=== PATIENT | female | born 1995 | race Hispanic/Latino ===

== ENCOUNTER → 2023-02-27 | Emergency (ER) | payer BC, OTHER ==
[~2023-02-27] MED LIST: CEFTRIAXONE 2000 MG/VIAL ONE; DIPHENHYDRAMINE 50 MG/ML VIAL ONE; MORPHINE 4 MG/ML SYR ONE; NA CHLORIDE 0.9% 1,000 ML ONE; NA CHLORIDE 0.9% 100 ML ONE; ONDANSETRON 4 MG/2 ML VIAL ONE
[2023-02-27 02:16] LABS: Specific Gravity 1.036 (1.005-1.030)
[2023-02-27 02:22] LABS: Absolute Lymphocytes (CBC) 0.6 K/uL (0.7-4.9); Hematocrit 39.6 % (36.0-45.0); Lymphocytes % 4.3 % (15.3-44.8); MCV 82.5 fL (80-100); Platelets 221 thou/uL (152-406)
[2023-02-27 02:30] LABS: Albumin 2.9 g/dL (3.4-5.0); Bilirubin Total 0.3 mg/dL (0.2-1.0); Potassium 3.2 mEq/L (3.5-5.1); Protein, Total 7.5 g/dL (6.4-8.2)
[2023-02-27 02:40] LABS: Specific Gravity > 1.030 (1.005-1.030); Urine Bacteria >50 /HPF (<20); Urine Bilirubin NEGATIVE (Negative); Urine Blood 3+ (Negative); Urine Clarity Extremely Turbid (Clear); Urine Color Yellow (Yellow); Urine Glucose TRACE (Negative); Urine Mucus 4+ /HPF (None Seen); Urine Protein 3+ (Negative); Urine RBC 21-50 /HPF (None Seen); Urine Urobilinogen Normal (Normal)
[2023-02-27 03:43] LABS: Blood Morphology Comment NOT SEEN (NOT SEEN); Platelet Estimate ADEQ
--- NOTE | 2023-02-27 05:07 | EDPHYS ---
Physician Documentation [facility] Name: Ivon Bahena Age: 27 yrs Sex: Female : 1995 Arrival Date: 02/27/2023 Time: 01:07 Bed 20 Private MD: ED Physician Camille Marcos HPI: 02/27 01:18 This 27 yrs old Female presents to ER via Unassigned with complaints of gb1 Abdominal Pain. 05:11 This 27 yrs old Female presents to ER via Ambulatory with complaints of gb1 Abdominal Pain. 05:11 27-year-old female with abdominal pain and right-sided back pain. She states that she gb1 has not had any fevers but she has had chills. She recently traveled abroad and returned on Friday. She has been feeling poor since then. She is nauseated no vomiting. No diarrhea.. 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 - Social history:: Smoking status: Patient denies any tobacco usage or history of. Patient uses alcohol, occasionally. Patient/guardian denies using street drugs. ROS: 05:11 Eyes: Negative for injury, pain, redness, and discharge, ENT: Negative for injury, gb1 pain, and discharge, Neck: Negative for injury, pain, and swelling, Cardiovascular: Negative for chest pain, palpitations, and edema, Respiratory: Negative for shortness of breath, cough, wheezing, and pleuritic chest pain, 05:11 Abdomen/GI: Positive for nausea, abdominal cramps, 05:11 All other systems are negative, Exam: 05:11 Constitutional: This is a well developed, well nourished patient who is awake, alert, gb1 and in no acute distress. Head/Face: Normocephalic, atraumatic. Eyes: Pupils equal round and reactive to light, extra-ocular motions intact. Lids and lashes normal. Conjunctiva and sclera are non-icteric and not injected. Cornea within normal limits. Periorbital areas with no swelling, redness, or edema. ENT: Nares patent. No nasal discharge, no septal abnormalities noted. Tympanic membranes are normal and external auditory canals are clear. Oropharynx with no redness, swelling, or masses, exudates, or evidence of obstruction, uvula midline. Mucous membranes moist. Neck: Trachea midline, no thyromegaly or masses palpated, and no cervical lymphadenopathy. Supple, full range of motion without nuchal rigidity, or vertebral point tenderness. No Meningismus. Chest/axilla: Normal chest wall appearance and motion. Nontender with no deformity. No lesions are appreciated. Cardiovascular: Regular rate and rhythm with a normal S1 and S2. No gallops, murmurs, or rubs. Normal PMI, no JVD. No pulse deficits. Respiratory: Lungs have equal breath sounds bilaterally, clear to auscultation and percussion. No rales, rhonchi or wheezes noted. No increased work of breathing, no retractions or nasal flaring. Back: No spinal tenderness. No costovertebral tenderness. Full range of motion. Skin: Warm, dry with normal turgor. Normal color with no rashes, no lesions, and no evidence of cellulitis. MS/ Extremity: Pulses equal, no cyanosis. Neurovascular intact. Full, normal range of motion. Neuro: Awake and alert, GCS 15, oriented to person, place, time, and situation. Cranial nerves II-XII grossly intact. Motor strength 5/5 in all extremities. Sensory grossly intact. Cerebellar exam normal. Normal gait. Psych: Awake, alert, with orientation to person, place and time. Behavior, mood, and affect are within normal limits. 05:11 Abdomen/GI: Inspection: abdomen appears normal, Bowel sounds: normal, Palpation: moderate abdominal tenderness, in the right lower quadrant, Indicators: McBurney's point is tender, Vital Signs: 01:28 BP 128 / 72; Pulse 101; Resp 19; Temp 98.9; Pulse Ox 100% ; Weight 57.61 kg; Height 5 jj7 ft. 1 in. ; Pain 8/10; 02:58 BP 110 / 73; Pulse 101; Pulse Ox 98% on R/A; ap3 04:13 Pain 9/10; ap3 04:13 BP 112 / 73; Pulse 98; Pulse Ox 98% on R/A; ap3 05:00 Pulse 88; Pulse Ox 98% on R/A; ap3 05:16 Pulse 87; Pulse Ox 97% on R/A; ap3 01:28 Body Mass Index 24.00 (57.61 kg, 154.94 cm) jj7 01:28 Pain Scale: Adult jj7 04:13 Pain Scale: Adult ap3 MDM: 01:36 Patient medically screened. gb1 05:11 Differential diagnosis: acute coronary syndrome, appendicitis, bowel obstruction, gb1 cholecystitis, Cholelithiasis, gastroesophageal reflux disease, GI Bleed. 05:11 Data reviewed: vital signs, nurses notes. ED course: 22-year-old 27-year-old female gb1 here with a right acute pyelonephritis. There is no sign of infected ureterolithiasis or obstruction. She is afebrile and at this time does not appear septic. I have started IV antibiotics and will discharge her home with Bactrim. I given explicit return precautions and if she cannot tolerate medications or develops fever and cannot keep fluids down that she is to return to the emergency department immediately. Patient's mother is at her bedside.. 02/27 02:17 Order name: Test, Urine; Complete Time: 02:43 EDMS 02/27 02:30 Order name: Comprehensive Metabolic Panel; Complete Time: 02:43 EDMS 02/27 02:30 Order name: Lipase; Complete Time: 02:43 EDMS 02/27 02:43 Order name: CBC with Automated Diff; Complete Time: 02:43 EDMS 02/27 02:43 Order name: Urinalysis w/ reflexes; Complete Time: 02:44 EDMS 02/27 03:37 Order name: CBC with Automated Diff; Complete Time: 04:55 EDMS 02/27 03:37 Order name: Comprehensive Metabolic Panel EDND 02/27 03:37 Order name: Lipase EDND 02/27 03:37 Order name: Test, Urine EDND 02/27 03:37 Order name: Urinalysis w/ reflexes EDND 02/27 03:37 Order name: Urine Culture EDND 02/27 03:37 Order name: Manual Differential; Complete Time: 04:55 EDMS 02/27 03:47 Order name: CT Abd/Pelvis - IV Contrast Only gb1 02/27 01:17 Order name: IV Saline Lock; Complete Time: 01:53 gb1 02/27 01:17 Order name: Labs collected and sent; Complete Time: gb1 Administered Medications: 02:59 Drug: NS 0.9% IV 1000 ml IV at 1000 ml once Route: IV; Rate: 1000 ml; Site: right ap3 antecubital; 05:38 Follow up: IV Status: Completed infusion; IV Intake: 1000ml ap3 02:59 Drug: Ondansetron IVP 4 mg IVP once; over 2 minutes Route: IVP; Site: right antecubital;ap3 05:01 Follow up: Response: No adverse reaction ap3 03:50 CANCELLED (Duplicate Order): ondansetron 4 mg IVP once; over 2 minutes gb1 04:03 Drug: morphine IVP or IV 4 mg IVP once over 4 mins Route: IVP; Infused Over: 4 mins; ap3 Site: right antecubital; 05:00 Follow up: Response: No adverse reaction; Pain is decreased ap3 05:15 Drug: diphenhydrAMINE IVP 12.5 mg IVP once Route: IVP; Site: right antecubital; ap3 05:37 Follow up: Response: No adverse reaction ap3 05:15 Drug: Rocephin - Rocephin (cefTRIAXone) IVPB 2 grams IVPB once over 30 mins; (mix in ap3 100 mL NS) Route: IVPB; Infused Over: 30 mins; Site: right antecubital; 05:47 Follow up: IV Status: Completed infusion; IV Intake: 100ml ap3 Disposition Summary: 02/27/23 05:06 Discharge Ordered Notes: Location: Home gb1 Problem: new gb1 Symptoms: have improved gb1 Condition: Stable gb1 Diagnosis - Pyelonephritis acute gb1 Followup: gb1 - With: Private Physician - When: 48 Hours - Reason: Re-evaluation by your physician Discharge Instructions: - Discharge Summary Sheet ap3 - Pyelonephritis, Adult, [id number] gb1 Forms: - Work release form ap3 - Medication Reconciliation Form gb1 - Thank You Letter gb1 - Antibiotic Education gb1 - Prescription Opioid Use gb1 - Patient Portal Instructions gb1 - Leadership Thank You Letter gb1 Prescriptions: - ketorolac 10 mg Oral tablet - take 1 tablet ORAL route every 6 hours for 5 days as needed for pain; 30 gb1 tablet; Refills: 0, Product Selection Permitted - Zofran 4 mg Oral Tablet - take 1 tablet ORAL route every 12 hours As needed; 20 tablet; Refills: 0, gb1 Product Selection Permitted - Bactrim DS 800-160 mg Oral Tablet - take 1 tablet ORAL route every 12 hours for 7 days; 14 tablet; Refills: 0, gb1 Product Selection Permitted Signatures: Dispatcher [employer] EDRandee Pate RN RN ap3 Srikanth Venegas RN RN jj7 Camille Marcos MD MD gb1 Corrections: (The following items were deleted from the chart) 03:38 03:31 CBC+H.LAB.BRZ ordered. EDMS EDMS 03:38 03:31 COMPREHENSIVE METABOLIC PANEL+C.LAB.BRZ ordered. EDMS EDMS 03:38 03:31 LIPASE+C.LAB.BRZ ordered. EDMS EDMS 03:38 03:31 Test, Urine+UC.LAB.BRZ ordered. EDMS EDMS 03:38 03:31 Urinalysis+U.LAB.BRZ ordered. EDMS EDMS 03:50 03:47 Ondansetron IVP 4 mg IVP once; over 2 minutes ordered. gb1 gb1 03:50 03:48 CBC+H.LAB.BRZ ordered. EDMS EDMS 03:50 03:48 COMPREHENSIVE METABOLIC PANEL+C.LAB.BRZ ordered. EDMS EDMS 03:50 03:48 LIPASE+C.LAB.BRZ ordered. EDMS EDMS
--- NOTE | 2023-02-27 05:07 | ER ---
Nurse's Notes [facility] Name: Ivon Bahena Age: 27 yrs Sex: Female : 1995 Arrival Date: 02/27/2023 Time: 01:07 Bed 20 Private MD: Diagnosis: Pyelonephritis acute Presentation: 02/27 01:28 Chief complaint: Patient states: RLL PAIN AND N/V/D/ SINCE FRIDAY. Coronavirus screen: jj7 At this time, the client does not indicate any symptoms associated with coronavirus-19. Ebola Screen: No symptoms or risks identified at this time. Initial Sepsis Screen: Does the patient meet any 2 criteria? HR > 90 bpm. No. Patient's initial sepsis screen is negative. Does the patient have a suspected source of infection? No. Patient's initial sepsis screen is negative. Risk Assessment: Do you want to hurt yourself or someone else? Patient reports no desire to harm self or others. 01:28 Method Of Arrival: Ambulatory [facility] 01:28 Acuity: MARYANNE 3 j7 01:53 Onset of symptoms is unknown. ap3 Triage Assessment: 01:32 General: Appears in no apparent distress. comfortable, Behavior is calm, cooperative, jj7 appropriate for age. Pain: Complains of pain in right lower quadrant GI: Reports lower abdominal pain, diarrhea, nausea, vomiting. 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 - Social history:: Smoking status: Patient denies any tobacco usage or history of. Patient uses alcohol, occasionally. Patient/guardian denies using street drugs. Screenin:53 [facility] ED Fall Risk Assessment (Adult) History of falling in the last 3 months, ap3 including since admission No falls in past 3 months (0 pts). Abuse screen: Denies threats or abuse. Nutritional screening: No deficits noted. Tuberculosis screening: No symptoms or risk factors identified. Assessment: 01:53 General: Appears in no apparent distress. Behavior is calm, cooperative, appropriate ap3 for age. Pain: Complains of pain in right lower quadrant Pain began gradually. Neuro: Level of Consciousness is awake, alert, obeys commands, Oriented to person, place, time, situation. Cardiovascular: Patient's skin is warm and dry. Respiratory: Airway is patent Respiratory effort is even, unlabored, Respiratory pattern is regular, symmetrical. 05:01 GI: Bowel sounds present X 4 quads. Abd is soft Abdomen is tender to palpation in right ap3 lower quadrant. 05:16 Reassessment: Patient and/or family updated on plan of care and expected duration. Pain ap3 level reassessed. Patient is alert, oriented x 3, equal unlabored respirations, skin warm/dry/pink. awaiting completion of antibiotics prior to patients departure. Vital Signs: 01:28 BP 128 / 72; Pulse 101; Resp 19; Temp 98.9; Pulse Ox 100% ; Weight 57.61 kg; Height 5 jj7 ft. 1 in. ; Pain 8/10; 02:58 BP 110 / 73; Pulse 101; Pulse Ox 98% on R/A; ap3 04:13 Pain 9/10; ap3 04:13 BP 112 / 73; Pulse 98; Pulse Ox 98% on R/A; ap3 05:00 Pulse 88; Pulse Ox 98% on R/A; ap3 05:16 Pulse 87; Pulse Ox 97% on R/A; ap3 01:28 Body Mass Index 24.00 (57.61 kg, 154.94 cm) jj7 01:28 Pain Scale: Adult jj7 04:13 Pain Scale: Adult ap3 ED Course: 01:15 Patient arrived in ED. gm2 01:17 Camille Marcos MD is Attending Physician. gb1 01:31 Triage completed. jj7 01:32 Arm band placed on right wrist. jj7 01:41 Randee Byrnes, AMANDA is Primary Nurse. ap3 01:52 Initial lab(s) drawn, by me, sent to lab. Inserted saline lock: 20 gauge in right ap3 antecubital area, using aseptic technique. Blood collected. 01:54 Patient has correct armband on for positive identification. Bed in low position. Call ap3 light in reach. Side rails up X 1. Adult w/ patient. 04:23 CT Abd/Pelvis - IV Contrast Only In Process Unspecified. EDMS 05:01 No provider procedures requiring assistance completed. ap3 05:47 Provided Education on: discharge instructions. ap3 05:47 IV discontinued, intact, bleeding controlled, No redness/swelling at site. Pressure ap3 dressing applied. Administered Medications: 02:59 Drug: NS 0.9% IV 1000 ml IV at 1000 ml once Route: IV; Rate: 1000 ml; Site: right ap3 antecubital; 05:38 Follow up: IV Status: Completed infusion; IV Intake: 1000ml ap3 02:59 Drug: Ondansetron IVP 4 mg IVP once; over 2 minutes Route: IVP; Site: right antecubital;ap3 05:01 Follow up: Response: No adverse reaction ap3 03:50 CANCELLED (Duplicate Order): ondansetron 4 mg IVP once; over 2 minutes gb1 04:03 Drug: morphine IVP or IV 4 mg IVP once over 4 mins Route: IVP; Infused Over: 4 mins; ap3 Site: right antecubital; 05:00 Follow up: Response: No adverse reaction; Pain is decreased ap3 05:15 Drug: diphenhydrAMINE IVP 12.5 mg IVP once Route: IVP; Site: right antecubital; ap3 05:37 Follow up: Response: No adverse reaction ap3 05:15 Drug: Rocephin - Rocephin (cefTRIAXone) IVPB 2 grams IVPB once over 30 mins; (mix in ap3 100 mL NS) Route: IVPB; Infused Over: 30 mins; Site: right antecubital; 05:47 Follow up: IV Status: Completed infusion; IV Intake: 100ml ap3 Medication: 01:54 VIS not applicable for this client. ap3 Intake: 05:38 IV: 1000ml; Total: 1000ml. ap3 05:47 IV: 100ml; Total: 1100ml. ap3 Outcome: 05:06 Discharge ordered by . gb1 05:47 Discharged to home ambulatory, with family, ap3 05:47 Condition: good 05:47 Discharge instructions given to patient, family, Instructed on discharge instructions, follow up and referral plans. medication usage, Demonstrated understanding of instructions, follow-up care, medications, Prescriptions given X 3, 05:48 Patient left the ED. ap3 Signatures: Dispatcher [facility] EDRandee Pate, RN RN ap3 Srikanth Venegas RN RN jj7 Camille Marcos MD MD gb1 Gladis Peterson 2
--- NOTE | 2023-02-27 09:56 | RAD REPORT ---
EXAM DESCRIPTION: CT - Abdomen Pelvis W Contrast - 02/27/2023 6:37 am CLINICAL HISTORY: The patient is 27 years old and is Female; RLQ PAIN TECHNIQUE: Axial computed tomography images of the abdomen and pelvis with intravenous contrast. S agittal and coronal reformatted images were created and reviewed. This CT exam was performed using one or more of the following dose reduction techniques: automated exposure control, adjustment of t he mA and/or kV according to patient size, and/or use of iterative reconstruction technique. COMPARISON: No relevant prior studies available. FINDINGS: Lung bases: Unremarkable. No mass. No consolidation. ABDOMEN: Liver: Unremarkable. No mass. Gallbladder and bile ducts: Unremarkable. No calcified stones. No ductal dilation. Pancreas: No findings to suggest acute pancreatitis. No mass visualized. No ductal dilation. Spleen: Unremarkable. No splenomegaly. Adrenals: Unremarkable. No mass. Kidneys and ureters: Punctate bilateral nephrolithiasis. No hydronephrosis or ureter stone visual ized. Multiple areas of striated decreased cortical enhancement in the right kidney. The inferior p erinephric fluid visualized. The left kidney is unremarkable. Stomach and bowel: No bowel dilatation or obstruction. No bowel wall thickening. Stomach is not well distended. PELVIS: Appendix: The visualized appendix is normal. No pericecal inflammation to suggest acute appendici tis. Bladder: Bladder wall thickening versus artifact of incomplete distention. Reproductive: 2.6 cm left ovarian simple cyst. Uterus and right ovary are unremarkable. ABDOMEN and PELVIS: Intraperitoneal space: Small amount of free fluid in the cul-de-sac, likely physiologic. No free air. Bones/joints: No acute fracture. No dislocation. Soft tissues: Unremarkable. Vasculature: Unremarkable. No abdominal aortic aneurysm. Lymph nodes: No pathologically enlarged lymph nodes. IMPRESSION: 1. Findings are consistent with right pyelonephritis. 2. Punctate bilateral nephrolithiasis. No hydronephrosis or ureter stone visualized. 3. Normal appendix. 4. 2.6 cm left ovarian simple-appearing cyst. No follow-up imaging is recommended. Reference: JACR 2019;17(2):[id number] Electronically signed by: Cara Travis MD 02/27/2023 04:46 AM COMIC WRITER Due to temporary technical issues with the PACS/Fluency reporting system, reports are being signed by the in house radiologist without review as a courtesy to ensure prompt reporting. The interpreting r adiologist is fully responsible for the content of the report.
[2023-02-27 11:48] VITALS: TEMP 98.9
[2023-02-27 12:00] VITALS: BP 112/73; O2SAT 97
== END ==
LOC: ER 01:07
DX: N10 Acute pyelonephritis (principal); Z88.1 Allergy status to other antibiotic agents; Z88.8 Allergy status to other drugs, medicaments and biological substances
CPT/HCPCS: 96365; 96361; 87088; 85025; 81001; 87086; 36415; 81025; 87077; 87186; 83690; 80053; 74177; 96375; 99284; Q9967; J1200; J2405; J0696; J7030